=== PATIENT | female | born 2000 | race Caucasian/White ===

== ENCOUNTER 2023-08-11 01:43 | Emergency (ER) | payer OTHER, SELFPAY ==
[2023-08-11 01:54] VITALS: BP 101/56; PULSE 76; RESP 20; TEMP 36.7; O2SAT 99; BMI 23.4
[2023-08-11 02:12] VITALS: O2SAT 98
[2023-08-11 02:33] LABS: Influenza A PCR NEGATIVE (Negative); Influenza B PCR NEGATIVE (Negative); Resp Syncy Virus RNA Qual PCR NEGATIVE (Negative); SARS COV2 PCR INHOUSE POSITIVE (Negative)
[2023-08-11 02:40] VITALS: BP 112/54; PULSE 70; RESP 18; O2SAT 99
--- NOTE | 2023-08-11 03:02 | ED.URI ---
HPI - URI/Sore Throat General Chief Complaint: Upper Respiratory Symptoms Stated Complaint: Flu Like Symptoms Time Seen by Provider: 08/11/23 02:23 Source: patient Mode of arrival: ambulatory History of Present Illness HPI Narrative: 22-year-old female who is 2 months presents with sore throat and nasal congestion, body aches and a dry cough. Otherwise, she denies any lower abdominal cramping, no vaginal bleeding and no loss of fluid. Related Data Allergies Allergy/AdvReac Type Severity Reaction Status Date / Time No Known Allergies Allergy Unverified 08/09/20 19:11 Review of Systems Review of Systems: Pertinent positives and negatives as stated in HPI PMF Past Medical History Source: nursing notes reviewed Social History Social History Alcohol intake: never Smoked in Last 30 Days: No Use of substances other than those prescribed or required for medical reasons: No Advance Directives: No Advance Directives Information Provided: Yes Patient : Yes Physical Exam Vital Signs: Vital Signs: Last Vital Signs Temp 98.1 F 08/11/23 01:54 Pulse 70 08/11/23 02:40 Resp 18 08/11/23 02:40 BP 112/54 L 08/11/23 02:40 Pulse Ox 99 08/11/23 02:40 O2 Del Method Room Air 08/11/23 02:40 BMI result Body Mass Index 23.4 VITAL SIGNS: Reviewed. GENERAL: Well developed, well nourished, in no acute distress. HEAD: Normocephalic/atraumatic EYES: PERRLA, EOMI EARS: Ext canals without abnormality, TMs non-bulging and non-erythematous NOSE: Nares patent bilateral OROPHARYNX: no oral lesions noted, posterior pharynx clear and non-erythematous without noted tonsillar enlargement/erythema/exudates NECK: Supple, no adenopathy LUNGS: Normal breath sounds. No adventitious sounds or accessory muscle use. SpO2<99> CARDIOVASCULAR: Regular rate and rhythm without noted murmurs ABDOMEN: Soft, non-tender, non-distended with bowel sounds. MUSCULOSKELETAL: No tenderness, deformities, or effusions noted on gross inspection. EXTREMITIES: No cyanosis, clubbing or edema. SKIN: Inspection of the skin reveals no rashes NEUROLOGIC: Alert and oriented x 4. Strength and sensation to light touch were grossly intact x 4. Medical Decision Making Medical Decision Making [facility] Narrative: 22-year-old female with history and clinical presentation consistent with viral syndrome, no concerns for SAB/miscarriage. I reviewed all viral testing which demonstrates COVID-19 positivity without influenza positivity. Results were discussed with patient at bedside and she understands she will need to isolate for the next 5 days then follow-up on implore your recommendations. Differential Diagnosis Differential Diagnoses: The differential diagnosis associated with the presentation includes Please see the discussion above Admission/Observation Consideration of admission/observation: Escalation of care including admission/observation considered Please see the discussion above Lab Data MDM Lab Attestation statement: I reviewed the patient's lab results. Please see the discussion above Labs: Lab Results 08/11/23 Range/Units 01:51 Influenza Type A (PCR) NEGATIVE (Negative) Influenza Type B (PCR) NEGATIVE (Negative) RSV RNA Qual (PCR) NEGATIVE (Negative) SARS-CoV-2 RNA (RT-PCR) POSITIVE A (Negative) Discharge Plan Discharge Clinical Impression: Viral syndrome, Lab test positive for detection of COVID-19 virus Patient Disposition: Home, Self-Care Instructions: Viral Syndrome (ED), COVID-19 (Coronavirus Disease 2019) (ED) Additional Instructions: 1. Tylenol for any body aches or temperatures greater than 100.4. Increase the amount of water that you drink. 2. 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 You must isolate for the next 5 days and then follow your implore your guidelines for return to work. Stand Alone Forms: Work/School Release Interventions: ED Discharge Assessment Last Done: 08/11/23 03:10 Discharge Date/Time: 08/11/23 03:10
== END 2023-08-11 03:10 | disposition home or self-care (01) ==
PROVIDERS: Emergency Provider Student in an Organized Health Care Education/Training Program
DX: U07.1 COVID-19 (principal); B34.9 Viral infection, unspecified; J02.9 Acute pharyngitis, unspecified
CPT/HCPCS: 0241U; 99283; 99284

== ENCOUNTER 2023-08-20 12:23 | Emergency (ER) | payer OTHER, SELFPAY | END 2023-08-20 14:14 | disposition left against medical advice (07) | PROVIDERS: Emergency Provider Emergency Medicine; PCP Student in an Organized Health Care Education/Training Program | DX: R33.9 Retention of urine, unspecified (principal) ==